=== PATIENT | male | born 1985 | race Caucasian/White ===

== ENCOUNTER 2016-08-23 11:43 | Outpatient (CLI) | payer OTHER | END 2016-08-23 11:44 | disposition critical access hospital (66) | DX: R11.2 Nausea with vomiting, unspecified (principal); R19.7 Diarrhea, unspecified | CPT/HCPCS: A0425; A0429 ==

== ENCOUNTER 2016-08-23 12:18 | Emergency (ER) | payer OTHER ==
[2016-08-23] MEDS ORDERED: ONDANSETRON ODT 4 MG TABLET ONE ×2 (12:26→12:29)
[2016-08-23] MEDS: ONDANSETRON ODT 4 MG TABLET TL STA (12:28)
[2016-08-23] MEDS ORDERED: KETOROLAC 30 MG/ML VIAL ONE (13:39)
[2016-08-23] MEDS: KETOROLAC 60 MG/2 ML VIAL IVP STA (13:52)
[2016-08-23] MEDS: SODIUM CHLORIDE 0.9% 1,000 ML IV ONE ×2 (13:52→15:20)
[2016-08-23] MEDS ORDERED: HYDROmorphone 1 MG/ML SYRINGE ONE (14:56)
[2016-08-23] MEDS: HYDROmorphone 1 MG/ML SYRINGE IVP STA (14:59)
== END 2016-08-23 15:42 | disposition home or self-care (01) ==
DX: A08.4 Viral intestinal infection, unspecified (principal); Z85.3 Personal history of malignant neoplasm of breast
CPT/HCPCS: 36415; 80053; 81003; 83690; 85025; 96361; 96374; 96375; 99283; 99284; J1170; Q0162